=== PATIENT | female | born 1945 | race Caucasian/White ===

== ENCOUNTER 2022-11-29 05:51 | Inpatient (IN) | payer MEDICARE, OTHER ==
[~2022-11-29] VITALS: Ht 162.6 cm; Wt 56.7 kg
[2022-11-29] VITALS (9 sets, daily range): BP systolic 122–146; BP diastolic 60–78
--- NOTE | 2022-11-29 07:23 | NUR ---
MS RN OPENING NOTES RECEIVED PATIENT AWAKE IN BED IN NO ACUTE SIGNS OF DISTRESS. A/O X4. ABLE TO MAKE NEEDS KNOWN, NO C/O PAIN AT THIS TIME. DRESSINGS ON RIGHT HIP C/D/I. ON ROOM AIR TOLERATING WELL, BREATHING EVEN AND UNLABORED. IV ACCESS ON EVANS G#20 SALINE LOCKED, PATENT AND INTACT. SAFETY MEASURES IN PLACE: BED IN LOWEST LOCKED POSITION, BED ALARM ON, SIDE-RAILS UP X2 AND CALL LIGHT WITHIN REACH. WILL CONTINUE TO MONITOR PT.
[2022-11-29] MEDS ORDERED: MORPHINE SULFATE INJ 2 MG/ML DISP.SYRIN IM ONE (08:35)
--- NOTE | 2022-11-29 08:47 | NUR ---
RN NOTES PATIENT COMPLAINED OF SHARP PAIN ON RIGHT HIP, 10/10 SCALE. MORPHINE 1 MG IVP ADMINISTERED AT 0843. WILL CONTINUE TO MONITOR AND REASSESS PT.
[2022-11-29] MEDS ORDERED: CHOL100043 PO (10:18)
[2022-11-29] MEDS ORDERED: HYDR-3980 PO (10:18)
[2022-11-29] MEDS ORDERED: POTA8TAB3 PO (10:18)
[2022-11-29] MEDS ORDERED: PANT40TA49 PO (10:18)
[2022-11-29] MEDS ORDERED: ASCO-352 PO (10:18)
[2022-11-29] MEDS ORDERED: LEVE500T9 PO (10:18)
[2022-11-29] MEDS ORDERED: LOSA50TA39 PO (10:18)
[2022-11-29] MEDS ORDERED: SUCR1TAB PO (10:18)
[2022-11-29] MEDS ORDERED: CYAN-51 PO (10:18)
[2022-11-29] MEDS ORDERED: METH750T3 PO (10:18)
[2022-11-29] MEDS ORDERED: ALBU18HF2 INH (10:18)
[2022-11-29] MEDS ORDERED: CELE-85 PO (10:18)
[2022-11-29] MEDS ORDERED: AMLO-212 PO (10:18)
[2022-11-29] MEDS ORDERED: TEMA30CA PO (10:18)
[2022-11-29] MEDS ORDERED: MAGN400T26 PO (10:18)
[2022-11-29] MEDS ORDERED: TRAZ-257 PO (10:18)
[2022-11-29] MEDS ORDERED: DONE10TA44 PO (10:18)
[2022-11-29] MEDS ORDERED: PREG-58 PO (10:18)
[2022-11-29] MEDS ORDERED: MECL-167 PO (10:18)
[2022-11-29] MEDS ORDERED: ASPI-1420 PO (10:18)
[2022-11-29] MEDS ORDERED: MAG HYDROX/AL HYDROX/SIMETH 30 ML UDC PO PRN (10:30)
[2022-11-29] MEDS ORDERED: ONDANSETRON HCL/PF 4 MG/2 ML VIAL IVP PRN (10:30)
[2022-11-29] MEDS ORDERED: ZOLPIDEM TARTRATE 5 MG TABLET PO PRN (10:30)
[2022-11-29] MEDS ORDERED: MAGNESIUM HYDROXIDE 30 ML UDC PO PRN (10:30)
[2022-11-29] MEDS ORDERED: Z GUARD REMEDY 4 OZ OINT TP PRN (10:30)
[2022-11-29] MEDS ORDERED: ACETAMINOPHEN 325 MG TABLET PO PRN (10:30)
[2022-11-29 11:06] LABS: BILIRUBIN,URINE NEGATIVE (NEGATIVE); COLOR,URINE YELLOW (YELLOW); LEUKOCYTE ESTERASE ,URINE NEGATIVE (NEGATIVE); NITRITE, URINE NEGATIVE (NEGATIVE); PH,URINE 6.5 (5.0-8.0); PROTEIN,URINE NEGATIVE (NEGATIVE); UGLUCOSE NEGATIVE (NEGATIVE); UROBILINOGEN,URINE 0.2 EU/dL (0.2)
[2022-11-29 11:10] LABS: BASOPHILS # (AUTO) 0.1 K/uL (0.0-0.2); BASOPHILS % (AUTO) 0.7 % (0.0-2.0); EOSINOPHILS % (AUTO) 1.2 % (0.0-6.0); HEMATOCRIT 29 % (33-45); HEMOGLOBIN 9.1 g/dL (11.5-14.8); LYMPHOCYTES # (AUTO) 0.9 K/uL (0.8-4.8); LYMPHOCYTES % (AUTO) 11.5 % (20.0-44.0); MEAN CORPUSCULAR HGB CONC 31 g/dl (31.0-36.0); MEAN CORPUSCULAR VOLUME 79 fL (82-100); MONOCYTES # (AUTO) 0.6 K/uL (0.1-1.30); MONOCYTES % (AUTO) 7.7 % (2.0-12.0); NEUTROPHILS # (AUTO) 6.1 K/uL (1.8-8.9); NEUTROPHILS % (AUTO) 78.9 % (43.0-81.0); PLATELET COUNT (AUTO) 409 K/uL (150-450); RED BLOOD CELL COUNT(AUTO) 3.67 MIL/uL (4.0-5.2); WHITE BLOOD COUNT (AUTO) 7.8 K/uL (4.3-11.0)
[2022-11-29 11:26] LABS: ALBUMIN 2.6 g/dL (3.4-5.0); BILIRUBIN,TOTAL 0.5 mg/dL (0.2-1.0); CALCIUM, SERUM 8.7 mg/dL (8.5-10.1); CREATININE 0.7 mg/dL (0.6-1.3); PHOSPHORUS 4.5 mg/dL (2.5-4.9); POTASSIUM 4.2 mmol/L (3.5-5.1)
[2022-11-29] MEDS: MORPHINE SULFATE INJ 2 MG/ML DISP.SYRIN IV PRN (12:38)
--- NOTE | 2022-11-29 12:46 | NUR ---
RN NOTES PATIENT COMPLAINED OF SHARP PAIN ON RIGHT HIP, 9/10 SCALE. MORPHINE 2MG IVP ADMINISTERED AT 1238. WILL CONTINUE TO MONITOR AND REASSESS PT.
[2022-11-29 13:15] LABS: IRON, SERUM 18 ug/dl (50-175); TOTAL IRON BINDING CAPACITY 328 ug/dl (250-450)
[2022-11-29 13:28] LABS: FERRITIN 75 ng/mL (8-388)
--- NOTE | 2022-11-29 14:47 | NUR ---
RN NOTES CALLED RADIOLOGY REGARDING HER XRAY OF RIGHT HIP AND TOLD ME THAT THEY WILL COME SOON TO DO IT.
[2022-11-29] MEDS ORDERED: BUPIVACAINE 0.5 % PF 150 MG/30 ML VIAL ONE (16:51)
[2022-11-29] MEDS ORDERED: HYDROMORPHONE INJ 2 MG/ML DISP.SYRIN ONE (16:51)
--- NOTE | 2022-11-29 16:54 | NUR ---
RN NOTES PATIENT PICKED UP FOR SURGERY AND ASSISTED BY OR NURSE CHERRIE BY HER BED.
--- NOTE | 2022-11-29 18:42 | NUR ---
MS RN CLOSING NOTES PATIENT RETURNED TO UNIT AT 1840 S/P RIGHT HIP CLOSED REDUCTION UNDER CONSCIOUS SEDATION WITH ACENESTHESIA BY DR MCMULLEN. PT IS AWAKE, A/O X4. ABLE TO MAKE NEEDS KNOWN. DRESSINGS ON RIGHT HIP INTACT WITH NO ACTIVE BLEEDING NOTED. PT WITH ABDUCTION PILLOW AND KNEE IMMOBILIZER IN PLACE. V/S CHECKED, STABLE AND RECORDED. ON ROOM AIR TOLERATING WELL, BREATHING EVEN AND UNLABORED. IV ACCESS ON EVANS G#20 SALINE LOCKED, INTACT AND PATENT. PT WITH PUREWICK IN PLACE PRODUCES CLEAR YELLOW URINE TO SUCTIONED BOTTLE. ALL NEEDS AND CARE ATTENDED WELL. SAFETY MEASURES IN PLACE: BED IN LOWEST LOCKED POSITION, BED ALARM ON, SIDE-RAILS UP X2 AND CALL LIGHT WITHIN REACH. WILL ENDORSE RASHAUN TO SCREEN PRINTING MACHINE OPERATOR HELPER NURSE.
--- NOTE | 2022-11-29 19:30 | NUR ---
MS RN OPENING NOTE RECEIVED PATIENT FROM AM NURSE; PATIENT ARRIVED FROM RR S/P RIGHT HIP CLOSED REDUCTION; PATIENT IS A/O X 4, ABLE TO MAKE NEEDS KNOWN; SEEN EATING AT BEDSIDE; STABLE ON ROOM AIR SATURATING AT 98%; WITH IV ACCESS ON EVANS G#20, PUREWICK IN PLACE DRAINING TO YELLOW COLORED URINE; VITAL SIGNS TAKEN AND RECORDED, STABLE; PATIENT NOW RESTING; NO COMPLAINTS OF PAIN AND DISCOMFORT AT THIS TIME; ENCOURAGED VERBALIZATION OF NEEDS; SAFETY MEASURES IMPLEMENTED, BED IN LOW AND LOCKED POSITION, SIDE RAILS UP X 3, CALL LIGHT WITHIN REACH; WILL CONTINUE TO MONITOR THROUGHOUT SHIFT
--- NOTE | 2022-11-30 01:00 | NUR ---
MS RN NOTE PATIENT ASKED FOR SLEEPING MEDICATION TO MAKE HER RELAX BECAUSE PER PATIENT, SHE FELT IRRITATED AND WANTED TO SLEEP BUT UNABLE TO. ADMINISTERED AMBIEN PRN ORDERED. PATIENT IS CURRENTLY SLEEPING COMFORTABLY. WILL CONTINUE TO MONITOR
[2022-11-30 06:18] LABS: BASOPHILS % (AUTO) 0.6 % (0.0-2.0); EOSINOPHILS % (AUTO) 1.3 % (0.0-6.0); HEMATOCRIT 30 % (33-45); HEMOGLOBIN 9.3 g/dL (11.5-14.8); LYMPHOCYTES # (AUTO) 0.8 K/uL (0.8-4.8); LYMPHOCYTES % (AUTO) 10.9 % (20.0-44.0); MEAN CORPUSCULAR HGB CONC 31 g/dl (31.0-36.0); MEAN CORPUSCULAR VOLUME 79 fL (82-100); MONOCYTES # (AUTO) 0.6 K/uL (0.1-1.30); MONOCYTES % (AUTO) 8.4 % (2.0-12.0); NEUTROPHILS % (AUTO) 78.8 % (43.0-81.0); PLATELET COUNT (AUTO) 368 K/uL (150-450); WHITE BLOOD COUNT (AUTO) 7.7 K/uL (4.3-11.0)
[2022-11-30 06:33] LABS: CALCIUM, SERUM 8.6 mg/dL (8.5-10.1); CREATININE 0.6 mg/dL (0.6-1.3); MAGNESIUM 1.8 mg/dL (1.8-2.4); PHOSPHORUS 4.1 mg/dL (2.5-4.9); POTASSIUM 4.5 mmol/L (3.5-5.1)
--- NOTE | 2022-11-30 06:45 | NUR ---
MS RN CLOSING NOTE PATIENT IS A/O X 4, ABLE TO MAKE NEEDS KNOWN ; STABLE ON ROOM AIR SATURATING AT 98%; WITH IV ACCESS ON EVANS G#20, PUREWICK IN PLACE DRAINING TO YELLOW COLORED URINE APPROXIMATELY 1000ML; VITAL SIGNS TAKEN AND RECORDED, STABLE; NO COMPLAINTS OF PAIN AND DISCOMFORT AT THIS TIME; PATIENT'S NEEDS ATTENDED; MONITORED PATIENT ACCORDINLY; SAFETY MEASURES IMPLEMENTED, BED IN LOW AND LOCKED POSITION, SIDE RAILS UP X 3, CALL LIGHT WITHIN REACH; WILL ENDORSE TO AM NURSE FOR RASHAUN.
--- NOTE | 2022-11-30 07:10 | NUR ---
MS RN OPENING RECEIVED PT ASLEEP IN BED, AROUSES EASILY. A/O X4. ABLE TO MAKE NEEDS KNOWN, NO C/O PAIN AT THIS TIME. DRESSINGS ON RIGHT HIP INTACT WITH NO ACTIVE BLEEDING NOTED. PT WITH ABDUCTION PILLOW AND KNEE IMMOBILIZER IN PLACE. ON ROOM AIR TOLERATING WELL, BREATHING EVEN AND UNLABORED. IV ACCESS ON EVANS G#20 SL, INTACT AND PATENT. PT WITH PUREWICK IN PLACE PRODUCES CLEAR YELLOW URINE TO SUCTIONED BOTTLE. SAFETY MEASURES IN PLACE: BED IN LOWEST LOCKED POSITION, BED ALARM ON, SIDE-RAILS UP X2 AND CALL LIGHT WITHIN REACH. WILL CONTINUE TO MONITOR.
[2022-11-30 08:00] VITALS: BP 151/75
--- NOTE | 2022-11-30 08:42 | NUR ---
RN NOTES PT COMPLAINED OF NAUSEA AND SMALL VOMITING. ZOFRAN WAS OFFERED BUT PT STATED THAT IT DOESN'T WORK ON HER IN THE PAST. SHE STATED THAT SHE USUALLY TAKES REGLAN. ONEYDA OLMOS MADE AWARE WITH ORDER TO ADMINISTER REGLAN 10MG IV Q6HRS PRN.
[2022-11-30] MEDS ORDERED: METOCLOPRAMIDE HCL 10 MG/2 ML VIAL IV PRN (09:00)
[2022-11-30] MEDS ORDERED: PANTOPRAZOLE 40 MG VIAL IV SCH (09:00)
--- NOTE | 2022-11-30 11:59 | NUR ---
RN NOTES 15 POLLO REMOVED ON RIGHT HIP, NO BLEEDING NOTED, APPLIED STERILE STRIPS. PHOTO TAKE AND FILED.
[2022-11-30] MEDS ORDERED: ASPI-992 PO (12:01)
[2022-11-30] MEDS ORDERED: FERR325T23 PO (12:01)
[2022-11-30] MEDS ORDERED: SOD FERRIC GLUC 125 MG in IV NS 0.9% 100 ML IV SCH (14:00)
[2022-11-30] MEDS: MORPHINE SULFATE INJ 2 MG/ML DISP.SYRIN IV PRN (14:54)
--- NOTE | 2022-11-30 15:00 | NUR ---
RN NOTES PATIENT COMPLAINT OF SEVERE PAIN ON HER RIGHT HIP, MORPHINE SULFATE 2MG GIVEN. WILL CONTINUE TO MONITOR PATIENT.
--- NOTE | 2022-11-30 15:24 | NUR ---
RN NOTES CALLED PHARMACY TWICE TO SEND FERRLECIT, BUT THEY DON'T DELIVER IT ON TIME.
--- NOTE | 2022-11-30 15:33 | NUR ---
RN NOTES RECEIVED CALL FROM LEAD PRESSMAN ROTO GRAVURE PRINTINGMERT GOVEA FROM [facility] THAT PT IS POSITIVE FOR MRSA OF BOTH NARES. LEFT MESSAGE TO FRANCISCO OLMOS.
[2022-11-30 15:59] VITALS: BP 148/67
--- NOTE | 2022-11-30 17:01 | NUR ---
RN NOTES CALLED AND REPORT GIVEN TO ERNA ZELAYA OF [facility] AND HE VERBALIZED UNDERSTANDING.
--- NOTE | 2022-11-30 18:12 | NUR ---
RN NOTES CALLED [facility] AT AROUND 1810 AND ASKED WHAT TIME ARE THEY COMING, OUTSIDE COLLECTOR SAID THAT AMBULANCE WAS A LITTLE BIT LATE DUE TO TRAFFIC.
--- NOTE | 2022-11-30 18:48 | NUR ---
RN NOTES PATIENT REFUSED TO BRING HER ABDUCTION PILLOW DESPITE EXPLAINING THE IMPORTANCE OF USING IT. PATIENT STILL REFUSED AND STATED TO THROW IT AWAY IN THE GARBAGE. EMT'S WERE AWARE.
--- NOTE | 2022-11-30 18:56 | NUR ---
RN DISCHARGED NOTES PT DISCHARGED TO [facility] IN STABLE CONDITION. A/O X4. ABLE TO VERBALIZED NEEDS. ON ROOM AIR, TOLERATING WELL WITH NO SOB NOTED. V/S TAKEN, STABLE AND RECORDED. ALL BELONGINGS ACCOUNTED AND PT SIGNED BELONGINGS LIST. IV ACCESS ON EVANS G#2O REMOVED WITH NO ACTIVE BLEEDING NOTED, DRY DRESSING APPLIED TO SITE. PHOTOS OF RIGHT HIP INCISION SITE TAKEN AND FILED ON HER CHART. DISCHARGED INSTRUCTIONS GIVEN PT AND TO ERNA ZELAYA OF [facility]. BOTH VERBALIZED UNDERSTANDING. REPORT AND EXIT FOLDER HANDED TO EMT'S FROM [facility]. PT LEFT UNIT VIA [facility] @ 9343 ACCOMPANIED BY 2 STAFF FROM [facility] TRANSPORTATION.
== END 2022-11-30 19:00 | DRG 561 ==
LOC: MED 05:51
PROVIDERS: ADMIT Nurse Practitioner Acute Care; ATTEND Nurse Practitioner Acute Care
PROC: 0SW9XJZ Revision of Synthetic Substitute in Right Hip Joint, External Approach (ICD-10-PCS; principal; 2022-11-29)
DX: T84.020A Dislocation of internal right hip prosthesis, initial encounter (principal); Y79.2 Prosthetic and other implants, materials and accessory orthopedic devices associated with adverse incidents; D50.9 Iron deficiency anemia, unspecified; I10 Essential (primary) hypertension; G40.909 Epilepsy, unspecified, not intractable, without status epilepticus; Z96.653 Presence of artificial knee joint, bilateral; F03.90 Unspecified dementia, unspecified severity, without behavioral disturbance, psychotic disturbance, mood disturbance, and anxiety; R74.01 Elevation of levels of liver transaminase levels; M41.9 Scoliosis, unspecified; Z95.0 Presence of cardiac pacemaker; Z96.642 Presence of left artificial hip joint; X58.XXXA Exposure to other specified factors, initial encounter; Y83.8 Other surgical procedures as the cause of abnormal reaction of the patient, or of later complication, without mention of misadventure at the time of the procedure; Y92.009 Unspecified place in unspecified non-institutional (private) residence as the place of occurrence of the external cause
CPT/HCPCS: 36415; 71045-TC; 73501; 73502; 80048-TC; 80053-TC; 80061-TC; 82728-TC; 83540-TC; 83735-TC; 84100-TC; 85025-TC; 85610-TC; 85730-TC; 86850-TC; 87081-TC; 93307-TC; 93971-TC; 97112-TC; 97530-TC; A4223; A6403; C9113; G0378; J1170; J2270; J2370; J2704; J2916; J3490; J7030; L1830